=== PATIENT | female | born 1990 | race Caucasian/White ===

== ENCOUNTER 2016-11-10 17:07 | Emergency (ER) | payer OTHER ==
--- NOTE | 2016-11-10 18:49 | ER Document Report ---
HPI - HPI Pain Level: Denies Notes: Patient is a 26-year-old female who presents the ED complaining of having a sensation of chest pressure, intermittent headaches, "weird" tingling sensation in the left arm and left leg 1 week. Patient states that she was evaluated by an urgent care 3 days ago and was given a Z-Wilfredo and Zofran. Her workup at that time included a chest x-ray, blood work, EKG which were all negative. Patient states that her headaches can be in the front and around the sides without any light or noise sensitivity. No history of migraines. Patient states that she does not have any chest pain, trouble breathing, shortness of breath, wheezing, cough. The pressure is felt primarily in the morning and then again it evening when she is lying supine. Patient states that she has been feeling a little anxious lately because of the symptoms and that they are not resolved yet. Patient goes on to say that although she feels overall better since starting the Z-Wilfredo and Zofran, that she feels like her symptoms should be gone by now. She does not take any medications daily. She has no known drug allergies. No significant past medical history. No major life stressors ongoing. Patient does not smoke and she does not do any miscellaneous drug use. Patient denies any significant family history of cardiac, respiratory, endocrine, or other GI medical issues. Patient states that she is still eating and drink without any problems. Her urinary and bowel movements have been normal. Denies any fever, current headache, dizziness, URI, sore throat, dysphagia, dysphasia, abdominal pain, nausea/vomiting, wheeze, diarrhea, dysuria, hematuria, urinary retention, loss control of bowel/bladder, seizures, rash. Patient states that she is sexually active with her . Her LMP was about a week ago. No surgical history. - ROS Notes: REVIEW OF SYSTEMS: CONSTITUTIONAL : Denies fever, chills, or sweats. Denies recent illness. EENT: Denies eye, ear, throat, or mouth pain or symptoms. Denies nasal or sinus congestion or discharge. Denies throat, tongue, or mouth swelling or difficulty swallowing. CARDIOVASCULAR: see hpi RESPIRATORY: Denies cough, cold, or chest congestion. Denies shortness of breath, difficulty breathing, or wheezing. GASTROINTESTINAL: Denies abdominal pain or distention. Denies nausea, vomiting , or diarrhea. Denies blood in vomitus, stools, or per rectum. Denies black, tarry stools. Denies constipation. GENITOURINARY: Denies difficulty urinating, painful urination, burning, frequency, blood in urine, or discharge. FEMALE GENITOURINARY: Denies vaginal bleeding, heavy or abnormal periods, irregular periods. Denies vaginal discharge or odor. MUSCULOSKELETAL: Denies back or neck pain or stiffness. Denies joint pain or swelling. SKIN: Denies rash, lesions or sores. NEUROLOGICAL: Denies confusion or altered mental status. Denies passing out or loss of consciousness. Denies dizziness or lightheadedness. Denies weakness or paralysis or loss of use of either side. Denies problems with gait or speech. Denies seizures. See HPI. PSYCHIATRIC: Denies stress. Denies depression, suicidal ideation, or homicidal ideation. See HPI. ALL OTHER SYSTEMS REVIEWED AND NEGATIVE. Dictation was performed using [employer] voice recognition software REVIEW OF SYSTEMS: - DERM Skin Color: Normal Past Medical History - Social History Smoking Status: Never Smoker Family History: Reviewed & Not Pertinent. denies: None, Arthritis, CAD, COPD, CVA, DM, Hyperlipidemia, Hypertension, Malignancy, Thyroid Disfunction, Other Patient has suicidal ideation: No Patient has homicidal ideation: No Renal/ Medical History: Denies: Hx Peritoneal Dialysis Vertical Provider Document - CONSTITUTIONAL Notes: PHYSICAL EXAMINATION: GENERAL: Well-appearing, well-nourished and in no acute distress. Obese HEAD: Atraumatic, normocephalic. Non-tender. EYES: Pupils equal round and reactive to light, extraocular movements intact, sclera anicteric, conjunctiva are normal. ENT: EAC clear b/l. TM's intact b/l without erythema, fluid, or perforation. Nares patent and without discharge. oropharynx clear without exudates. No tonsilar hypertrophy or erythema. Moist mucous membranes. No sinus tenderness. NECK: Normal range of motion, supple without lymphadenopathy. No rigidity/ meningismus. Spurling negative. Chest: equal rise/fall. Non-tender to palpation. LUNGS: Breath sounds clear to auscultation bilaterally and equal. No wheezes rales or rhonchi. HEART: Regular rate and rhythm without murmurs, rubs, gallops. ABDOMEN: Soft, nontender, nondistended abdomen. No guarding, no rebound. No masses appreciated. Normal bowel sounds present. No CVA tenderness bilaterally. Musculoskeletal: FROM to passive/active. Strength 5+/5. SLR negative b/l. Sumeet neg b/l. Extremities: No cyanosis, clubbing, or edema b/l. Peripheral pulses 2+. Capillary refill less than 3 seconds. NEUROLOGICAL: Cranial nerves grossly intact. Normal speech, normal gait. Normal sensory, motor exams PSYCH: Normal mood, normal affect. SKIN: Warm, Dry, normal turgor, no rashes or lesions noted. - INFECTION CONTROL TRAVEL OUTSIDE OF THE [place] IN LAST 30 DAYS: No - RESPIRATORY O2 Sat by Pulse Oximetry: 99 Course - Re-evaluation Re-evalutation: 11/10/16 19:[address] Mota: Patient is an afebrile, well-hydrated, 26yo female who presents with chest pressure NOS. Vitals are stable. PE unremarkable. PERC score of 0. Low suspicion for any ACS, Pneumothorax, PE, dissection, pericarditis based on work up and presentation. Urine preg negative. CXR negative. EKG negative. No significant PMH/FH (aside from BMI >30) or H&P that would warrant further work up for cardiac etiology at this time. Recommend she continue with the antibiotic and zofran prn for her symptoms. Pt did state she was feeling overall better (symptoms improving) over the last 3 days (since treatment). I would like her to have a f/u with her PCM in 2-3 days for a recheck. ?Anxiety. Return to the ED with any worsening/concerning symptoms as reviewed in discharge. Pt in agreement. - Vital Signs Vital signs: Temp Pulse Resp BP Pulse Ox 99.5 F 92 15 135/82 H 99 11/10/16 17:58 11/10/16 17:58 11/10/16 17:58 11/10/16 17:58 11/10/16 17:58 Discharge - Discharge Clinical Impression: Chest pressure, Anxiety Condition: Stable Disposition: HOME, SELF-CARE Instructions: Headache ([facility]) Additional Instructions: Maintain adequate fluid intake Take meds as directed tylenol/ibuprofen as needed over the counter cold medication as needed for symptoms Humidified air may help for any development of cough F/u: with your PCM in 2-3 days for a recheck and further evaluation Return to the ED with any worsening symptoms and/or development of fever, headache, chest pain, palpitations, syncope, shortness of breath, trouble breathing, abdominal pain, n/v/d, blood in stool/urine, urinary retention, muscle weakness/paralysis, or other worsening symptoms that are concerning to you. Forms: Elevated Blood Pressure
--- NOTE | 2016-11-10 19:16 | RADIOLOGY REPORT (SQ) ---
EXAM DESCRIPTION: CHEST PA/LAT COMPLETED DATE/TIME: 11/10/2016 7:04 pm REASON FOR STUDY: Chest heaviness COMPARISON: None. EXAM PARAMETERS: NUMBER OF VIEWS: two views TECHNIQUE: Digital Frontal and Lateral radiographic views of the chest acquired. RADIATION DOSE: NA LIMITATIONS: none FINDINGS: LUNGS AND PLEURA: No opacities, masses or pneumothorax. No pleural effusion. MEDIASTINUM AND HILAR STRUCTURES: No masses or contour abnormalities. HEART AND VASCULAR STRUCTURES: Heart normal size. No evidence for failure. BONES: No acute findings. HARDWARE: None in the chest. OTHER: No other significant finding. IMPRESSION: NO SIGNIFICANT RADIOGRAPHIC FINDING IN THE CHEST. TECHNICAL DOCUMENTATION: JOB ID: [id number] [employer]- All Rights Reserved
[2016-11-10 20:35] VITALS: BP 121/73
--- NOTE | 2016-11-10 21:31 | EKG REPORT ---
SEVERITY:- NORMAL ECG - SINUS RHYTHM : Confirmed by: Mary Alcala 10-Nov-2016 21:31:23
== END 2016-11-10 20:33 | disposition home or self-care (01) ==
LOC: ER 17:07
DX: R07.89 Other chest pain (principal); R51 Headache; R20.2 Paresthesia of skin
CPT/HCPCS: 71020; 81025; 93005; 93010; 99285

== ENCOUNTER 2019-02-07 16:35 | Outpatient (CLI) | payer OTHER ==
[2019-02-07 17:51] LABS: APPEARANCE,URINE SLIGHTLY-CLOUDY; BILIRUBIN,URINE NEGATIVE (NEGATIVE); COLOR,URINE YELLOW; GLUCOSE, URINE 50 mg/dL (NEGATIVE); KETONES,URINE NEGATIVE (NEGATIVE); LEUKOCYTE ESTERASE,URINE NEGATIVE (NEGATIVE); NITRITE,URINE NEGATIVE (NEGATIVE); PROTEIN,URINE NEGATIVE (NEGATIVE); URINE SPECIFIC GRAVITY 1.018; UROBILINOGEN,URINE NEGATIVE mg/dL (<2.0)
[2019-02-07 18:07] LABS: URINE AMPHETAMINES SCREEN NEGATIVE; URINE BARBITURATES SCREEN NEGATIVE; URINE BENZODIAZEPINES SCREEN NEGATIVE; URINE COCAINE SCREEN NEGATIVE; URINE MARIJUANA (THC) SCREEN NEGATIVE; URINE METHADONE SCREEN NEGATIVE; URINE PHENCYCLIDINE SCREEN NEGATIVE
[2019-02-07 18:16] LABS: UR PRO/CREAT RATIO RESULT 0.1 mg/mg (0.0-0.2); URINE CREATININE 92.7 mg/dL (16-327); URINE PROTEIN 9.6 mg/dL (<12)
[2019-02-07 18:42] LABS: ABSOLUTE BASOPHILS # (AUTO) 0.1 10^3/uL (0.0-0.2); ABSOLUTE EOSINOPHILS # (AUTO) 0.1 10^3/uL (0.0-0.6); ABSOLUTE LYMPHOCYTES (AUTO) 1.4 10^3/uL (0.5-4.7); ABSOLUTE NEUT (AUTO) 8.6 10^3/uL (1.7-8.2); BASOPHILS % (AUTO) 0.7 % (0-2); EOSINOPHILS % (AUTO) 0.6 % (0-6); HEMATOCRIT 34.2 % (36.0-47.0); HEMOGLOBIN 11.1 g/dL (12.0-15.5); LYMPHOCYTES % (AUTO) 12.1 % (13-45); MEAN CORPUSCULAR HEMOGLOBIN 25.7 pg (27.0-33.4); MEAN CORPUSCULAR HGB CONC 32.4 g/dL (32.0-36.0); MEAN CORPUSCULAR VOLUME 79 fl (80-97); MONOCYTES % (AUTO) 9.2 % (3-13); PLATELET COUNT 246 10^3/uL (150-450); RED BLOOD COUNT 4.31 10^6/uL (3.72-5.28); SEGMENTED NEUTROPHILS % (AUTO) 77.4 % (42-78); TOTAL CELLS COUNTED % (AUTO) 100 %; WHITE BLOOD COUNT 11.1 10^3/uL (4.0-10.5)
[2019-02-07 19:04] LABS: ALBUMIN 3.4 g/dL (3.5-5.0); ALKALINE PHOSPHATASE 98 U/L (38-126); ANION GAP 9 (5-19); ASPARTATE AMINO TRANSFERASE 16 U/L (14-36); BILIRUBIN,DIRECT 0.1 mg/dL (0.0-0.4); BILIRUBIN,TOTAL 0.2 mg/dL (0.2-1.3); BLOOD UREA NITROGEN 8 mg/dL (7-20); CALCIUM 9.3 mg/dL (8.4-10.2); CARBON DIOXIDE 21 mmol/L (22-30); CHLORIDE 104 mmol/L (98-107); GLUCOSE 92 mg/dL (75-110); POTASSIUM 4.3 mmol/L (3.6-5.0); TOTAL PROTEIN 6.4 g/dL (6.3-8.2); URIC ACID 3.6 mg/dL (2.5-6.2)
--- NOTE | 2019-02-07 19:09 | Non Stress Test Report ---
Non Stress Test Datetime Report Generated by CPN: 02/07/2019 19:08 DEMOGRAPHIC Test Number: 1 EGA NST: 38.6 INDICATION Indication for Study: Ordered by Provider MONITORING Monitor Explained: Monitor Explained; Test Explained; Patient Verbalized Understanding Time on Monitor: 02/07/2019 18:27 Time off Monitor: 02/07/2019 19:00 NST Duration: 33 NST INTERVENTIONS NST Interventions: PO Hydration; Reposition Patient Physician Notified NST: Dr. Cagle BABY A: [id number] BABY A Movement : Present Contraction Frequency : Irregular FHR Baseline : 135 Accelerations : 15X15 Decelerations : None Variability : Moderate 6-25bpm NST Review: Meets Criteria for Reactive NST NST Review and Verified By : Jose Noel RN NST Results: Reactive NST COMMENTS NST Comments: MD on unit reviewing FHT strip NST REPORT Report Trigger: Send Report
== END 2019-02-07 19:44 | disposition home or self-care (01) ==
LOC: LC 16:35
PROVIDERS: ATTEND Student in an Organized Health Care Education/Training Program
PROC: 4A1HXCZ Monitoring of Products of Conception, Cardiac Rate, External Approach (ICD-10-PCS; principal; 2019-02-07)
DX: Z36.89 Encounter for other specified antenatal screening (principal)
CPT/HCPCS: 36415; 59025; 80053; 80307; 81005; 82570; 83615; 84156; 84550; 85025

== ENCOUNTER 2019-02-08 18:24 | Outpatient (CLI) | payer OTHER ==
[2019-02-08 19:14] LABS: URINE PROTEIN 8.3 mg/dL (<12)
[2019-02-08 19:15] LABS: 24 HOUR URINE PROTEIN RESULT 168 mg/day (42-225)
== END 2019-02-08 19:56 | disposition home or self-care (01) ==
LOC: LC 18:24
PROVIDERS: ATTEND Obstetrics & Gynecology
PROC: 4A1HXCZ Monitoring of Products of Conception, Cardiac Rate, External Approach (ICD-10-PCS; principal; 2019-02-08)
DX: O14.93 Unspecified pre-eclampsia, third trimester (principal); Z3A.39 39 weeks gestation of pregnancy
CPT/HCPCS: 59025; 84156

== ENCOUNTER 2019-02-17 01:33 | Inpatient (IN) | payer OTHER ==
[2019-02-17 02:08] LABS: APPEARANCE,URINE CLOUDY; BILIRUBIN,URINE NEGATIVE (NEGATIVE); COLOR,URINE YELLOW; GLUCOSE, URINE NEGATIVE (NEGATIVE); KETONES,URINE NEGATIVE (NEGATIVE); LEUKOCYTE ESTERASE,URINE NEGATIVE (NEGATIVE); NITRITE,URINE NEGATIVE (NEGATIVE); PROTEIN,URINE 100 mg/dL (NEGATIVE); URINE SPECIFIC GRAVITY 1.026; UROBILINOGEN,URINE NEGATIVE mg/dL (<2.0)
[2019-02-17 02:42] LABS: URINE AMPHETAMINES SCREEN NEGATIVE; URINE BARBITURATES SCREEN NEGATIVE; URINE BENZODIAZEPINES SCREEN NEGATIVE; URINE COCAINE SCREEN NEGATIVE; URINE MARIJUANA (THC) SCREEN NEGATIVE; URINE METHADONE SCREEN NEGATIVE; URINE PHENCYCLIDINE SCREEN NEGATIVE
[2019-02-17 02:56] LABS: ABSOLUTE EOSINOPHILS # (AUTO) 0.1 10^3/uL (0.0-0.6); ABSOLUTE LYMPHOCYTES (AUTO) 1.2 10^3/uL (0.5-4.7); ABSOLUTE NEUT (AUTO) 7.8 10^3/uL (1.7-8.2); BASOPHILS % (AUTO) 0.4 % (0-2); EOSINOPHILS % (AUTO) 0.6 % (0-6); HEMATOCRIT 31.9 % (36.0-47.0); HEMOGLOBIN 10.4 g/dL (12.0-15.5); LYMPHOCYTES % (AUTO) 12.1 % (13-45); MEAN CORPUSCULAR HEMOGLOBIN 25.8 pg (27.0-33.4); MEAN CORPUSCULAR HGB CONC 32.7 g/dL (32.0-36.0); MEAN CORPUSCULAR VOLUME 79 fl (80-97); MONOCYTES % (AUTO) 9.8 % (3-13); PLATELET COUNT 211 10^3/uL (150-450); RED BLOOD COUNT 4.04 10^6/uL (3.72-5.28); RED CELL DISTRIBUTION WIDTH 15.2 % (11.5-14.0); SEGMENTED NEUTROPHILS % (AUTO) 77.1 % (42-78); TOTAL CELLS COUNTED % (AUTO) 100 %; WHITE BLOOD COUNT 10.1 10^3/uL (4.0-10.5)
[2019-02-17] MEDS ORDERED: OXYTOCIN/NORMAL SALINE 20 UNIT/1,000 ML RTUINJ ONE ×2 (03:49→09:19)
--- NOTE | 2019-02-17 03:51 | Admission Physical ---
Datetime Report Generated by CPN: 02/17/2019 03:51 CURRENT ADMISSION Chief Complaint: Suspected Ruptured Membranes Chief Complaint Other: "I think my water broke" Indication for Induction: Not Applicable Admit Impression : Term, Intrauterine Admit Plan: Admit to Unit; Initiate Labor Augmentation Protocol ALLERGIES Medication Allergies: No Medication Allergies: No Known Allergies (02/08/2019) Latex: No Latex Allergies Food Allergies: None Environmental Allergies: None OBSTETRICAL HISTORY EDC: 02/15/2019 00:00 : 1 Para: 0 Gestational Diabetes: Yes Rh Sensitization: No Incompetent Cervix: No JOSEFINA: No Infertility: No ART Treatment: No Uterine Anomaly: No IUGR: No Hx Previous C/S: No Macrosomia: No Hx Loss/Stillborn: No PIH: No Hx : No Placenta Previa/Abruption: No Depression/PP Depression: No PTL/PROM: No Post Hemorrhage: No Current Procedures: Ultrasound; NST Obstetrical History Comments: G1- Current, GDMA1 SEE RECORDS Alcohol: No Marijuana : No Cocaine: No Other Illicit Drugs: No Cigarettes: Never Smoker. [id number] MEDICAL HISTORY Diabetes: Yes Diabetes Type: Gestational Diabetes Blood Transfusion: No Pulmonary Disease (Asthma, TB): No Breast Disease: No Hypertension: Yes Emt Driver Surgery: No Heart Disease: No Hosp/Surgery: No Autoimmune Disorder: No Anesthetic Complications: No Kidney Disease: No Abnormal Pap Smear: No Neuro/Epilepsy: No Psychiatric Disorders: No Other Medical Diseases: No Hepatitis/Liver Disease: No Significant Family History: No Varicosities/Phlebitis: No Trauma/Violence : No Thyroid Dysfunction: No Medical History Comments: [facility] INFECTIOUS HISTORY Gonorrhea: No Genital Herpes: No Chlamydia: No Tuberculosis: No Syphilis: No Hepatitis: No HIV/AIDS Exposure: No Rash or Viral Illness: No HPV: No PHYSICAL EXAM General: Normal HEENT: Normal Neurologic: Normal Thyroid: Normal Heart: Normal Lungs: Normal Breast: Normal Back: Normal Abdomen: Normal Genitourinary Exam: Normal Extremities: Normal DTRs: Normal Pelvic Type: Adequate Vital Signs: Reviewed; Within Normal Limits VAGINAL EXAM Dilatation: 1 Effacement: thick Station: -3 Contraction Comments: rare MEMBRANES Membranes: Ruptured Amniotic Fluid Color: Clear FETUS A EGA: 40.2 Monitoring: External US FHR- Baseline: 130s Variability: Moderate 6-25bpm Accelerations: 15X15 Decelerations: None FHR Category: Category I Admit Comment: G1 presented to L_D c/o that her water may have broken at 0100. ActimProm Positive. She is not maryam and reports good movement. GBS Neg. GDM--diet controlled. PLANS FOR LABOR AND DELIVERY Labor and Delivery: None Pain Management: Natural; Medications; Epidural Feeding Preference: Breast Benefit of Breast Feed Discussed: Yes Circumcision: N/A INFORMED CONSENT Signature: with User ID: [email or web address]
[2019-02-17 06:04] LABS: ALBUMIN 2.9 g/dL (3.5-5.0); ALKALINE PHOSPHATASE 81 U/L (38-126); ANION GAP 9 (5-19); ASPARTATE AMINO TRANSFERASE 15 U/L (14-36); BILIRUBIN,DIRECT 0.1 mg/dL (0.0-0.4); BILIRUBIN,TOTAL 0.1 mg/dL (0.2-1.3); BLOOD UREA NITROGEN 11 mg/dL (7-20); CALCIUM 8.7 mg/dL (8.4-10.2); CARBON DIOXIDE 20 mmol/L (22-30); CHLORIDE 107 mmol/L (98-107); GLUCOSE 106 mg/dL (75-110); POTASSIUM 4.1 mmol/L (3.6-5.0); TOTAL PROTEIN 5.8 g/dL (6.3-8.2); URIC ACID 3.8 mg/dL (2.5-6.2)
[2019-02-17] MEDS ORDERED: OXYTOCIN 10 UNIT/ML VIAL ONE (09:19)
[2019-02-17] MEDS ORDERED: LIDOCAINE 1% INJ-PF (10 MG/ML) 30 ML SDV ONE (09:19)
[2019-02-17] MEDS ORDERED: MISOPROSTOL 0.2 MG TABLET ONE (09:19)
[2019-02-17] MEDS: RINGERS SOLUTION,LACTATED 1,000 ML IV PRN ×3 (09:22→20:32)
[2019-02-17] MEDS ORDERED: PROMETHAZINE HCL INJ 25 MG/1 ML VIAL ONE (14:43)
[2019-02-17] MEDS ORDERED: NALBUPHINE HCL INJ 10 MG/1 ML AMPULE ONE (14:43)
[2019-02-17] MEDS ORDERED: PROMETHAZINE HCL INJ 25 MG/1 ML VIAL IV ONE (14:44)
[2019-02-17] MEDS ORDERED: NALBUPHINE HCL INJ 10 MG/1 ML AMPULE INJ ONE (14:44)
[2019-02-17 18:43] LABS: BASOPHILS % (AUTO) 0.3 % (0-2); EOSINOPHILS % (AUTO) 0.1 % (0-6); HEMATOCRIT 33.9 % (36.0-47.0); HEMOGLOBIN 10.9 g/dL (12.0-15.5); LYMPHOCYTES % (AUTO) 7.1 % (13-45); MEAN CORPUSCULAR HEMOGLOBIN 25.4 pg (27.0-33.4); MEAN CORPUSCULAR VOLUME 79 fl (80-97); MONOCYTES % (AUTO) 6.9 % (3-13); PLATELET COUNT 201 10^3/uL (150-450); RED BLOOD COUNT 4.28 10^6/uL (3.72-5.28); RED CELL DISTRIBUTION WIDTH 15.2 % (11.5-14.0); SEGMENTED NEUTROPHILS % (AUTO) 85.6 % (42-78); TOTAL CELLS COUNTED % (AUTO) 100 %
[2019-02-17] MEDS ORDERED: PHENYLEPHRINE HCL INJ/PF 10 MG/1 ML SDV ONE (18:50)
[2019-02-17] MEDS ORDERED: FENTANYL CITRATE INJ/PF 100 MCG/2 ML AMPUL ONE (18:51)
[2019-02-17] MEDS ORDERED: BUPIVACAINE HCL 0.25 % INJ/PF (2.5 MG/1 ML) 30 ML VIAL ONE ×2 (18:51→22:54)
[2019-02-17] MEDS ORDERED: FENTANYL/BUPIVACAINE/NS/PF 300 MCG/150 ML RTUINJ EPI ONE (18:51)
[2019-02-17] MEDS ORDERED: EPHEDRINE SULFATE INJ 50 MG/1 ML AMPULE ONE (18:51)
[2019-02-18] MEDS ORDERED: CEFAZOLIN INJ 1 GM VIAL ONE (03:57)
[2019-02-18] MEDS ORDERED: CEFAZOLIN 2 GM/D5W RTU 2 GM/50 ML RTUPB IV ONE (04:00)
[2019-02-18] MEDS ORDERED: BENZOCAINE/MENTHOL AEROSOL SPRAY 56 ML TOP PRN (04:30)
[2019-02-18] MEDS ORDERED: DIBUCAINE 1% OINTMENT 56 GM TP PRN (04:30)
[2019-02-18] MEDS ORDERED: ACETAMINOPHEN 650 MG SUPP.RECT PR PRN (04:30)
[2019-02-18] MEDS ORDERED: PROMETHAZINE HCL INJ 25 MG/1 ML VIAL IV PRN (04:30)
[2019-02-18] MEDS ORDERED: MAGNESIUM HYDROXIDE SUSP 30 ML UDCUP PO PRN (04:30)
[2019-02-18] MEDS ORDERED: PROMETHAZINE HCL 25 MG SUPP.RECT PR PRN (04:30)
[2019-02-18] MEDS ORDERED: ACETAMINOPHEN WITH CODEINE #3 TABLET PO PRN (04:30)
[2019-02-18] MEDS ORDERED: DIPH/PERTUSS(ACELL)/TETANUS VAC/PF 0.5 ML SYR (>=10YO) IM PRN (04:30)
[2019-02-18] MEDS ORDERED: OXYTOCIN/NORMAL SALINE 20 UNIT/1,000 ML RTUINJ IV PRN (04:30)
[2019-02-18] MEDS ORDERED: DIPHENHYDRAMINE HCL 25 MG CAPSULE PO PRN (04:30)
[2019-02-18] MEDS ORDERED: ZOLPIDEM TARTRATE 5 MG TABLET PO PRN (04:30)
[2019-02-18] MEDS ORDERED: MEASLES,MUMPS&RUBELLA VACC/PF 0.5 ML VIAL SUBCUT PRN (04:30)
[2019-02-18] MEDS ORDERED: NA PHOS,M-B/NA PHOS,DI-BA (ADULT) 133 ML ENEMA PR PRN (04:30)
[2019-02-18] MEDS ORDERED: PROMETHAZINE HCL 25 MG TABLET PO PRN (04:30)
[2019-02-18] MEDS ORDERED: PSEUDOEPHEDRINE HCL 30 MG TABLET PO PRN (04:30)
[2019-02-18] MEDS ORDERED: GLYCERIN/WITCH HAZEL LEAF 1 EACH MED..WIPE TP PRN (04:30)
--- NOTE | 2019-02-18 06:21 | Warning Signs in Babies ---
VOD Warning Signs Datetime Report Generated by [facility]: 02/18/2019 06:21 VOD#608 -Warning Signs in Babies: Needs to be viewed. (02/07/2019 16:53:Roxane Hernandez RN)
[2019-02-18] MEDS ORDERED: IBUPROFEN 800 MG TABLET ONE (06:38)
[2019-02-18] MEDS: IBUPROFEN 800 MG TABLET PO SCH ×3 (06:41→21:28)
--- NOTE | 2019-02-18 06:44 | Delivery Summary ---
Del Sum A-C Datetime Report Generated by CPN: 02/18/2019 06:44 DELIVERY PERSONNEL DELIVERY PERSONNEL: [id number] Delivery Doctor:: Gabo Seo MD Labor and Delivery Nurse:: Elizabeth Aldana RNhand bindery assembly worker Nurse:: Roxane Henrandez RN Nursery Nurse:: Grazyna Rodgers RN Clinical Scientist/COVER MAKING MACHINE OPERATOR: Deepti Green, ST MATERNAL INFORMATION Delivery Anesthesia: Epidural Medications After Delivery: Pitocin Drip 20 Units/1000ml NSS; Cytotec 1000mcg Per Rectum/Vagina Delivery QBL: 350 Delivery QBL Comment: Total QBL 523 Maternal Complications: Other Complication Details: GDMA1 LABOR SUMMARY EDC: 02/15/2019 00:00 No. Babies in Womb: 1 Attempted: No Labor Anesthesia: Epidural LABOR INFORMATION Reason for Induction: Not Applicable Onset of Labor: 02/17/2019 14:43 Complete Dilatation: 02/17/2019 23:47 Oxytocin: Augmentation Group B Beta Strep: neg Antibiotics # of Doses: 1 Antibiotics Time of Last Dose: 0405 Name of Antibiotic Given: Ancef 2 g Steroids Given: None Reason Steroids Not Administered: Not Applicable MEMBRANES Membranes Rupture Method: Spontaneous Rupture of Membranes: 02/17/2019 00:00 Length of Rupture (hr): 28.23 Amniotic Fluid Color: Light Meconium Amniotic Fluid Amount: Small Amniotic Fluid Odor: Normal STAGES OF LABOR Stage 1 hr: 9 Stage 1 min: 4 Stage 2 hr: 4 Stage 2 min: 27 Stage 3 hr: 0 Stage 3 min: 3 Total Time in Labor hr: 13 Total Time in Labor min: 34 VAGINAL DELIVERY Episiotomy: None Laceration #1: Vaginal Laceration Extension #1: First Degree Laceration Repair: Yes Laceration Repair Note: repaired with 2-0 vicryl left and right vaginal lacerations repaired with 2-0 vicryl Sponge Count Correct: Yes Sharps Count Correct: Yes CSECTION DELIVERY Primary Indication: N/A Secondary Indication: N/A CSection Incidence: N/A Labor: N/A Elective: N/A CSection Incision: N/A BABY A INFORMATION Infant Delivery Date/Time: 02/18/2019 04:14 Method of Delivery: Vaginal Born in Route : No : N/A Forceps: N/A Vacuum Extraction: Successful Shoulder Dystocia : No PRESENTATION/POSITION BABY A Presentation: Cephalic Cephalic Presentation: Vertex Vertex Position: Occipital Posterior Breech Presentation: N/A PLACENTA INFORMATION BABY A Placenta Delivery Time : 02/18/2019 04:17 Placenta Method of Delivery: Spontaneous Placenta Status: Delivered SCORES BABY A Heart Rate 1 min: >100 bpm Resp Effort 1 min: Good Cry Reflex Irritability 1 min: Cough or Sneeze or Pulls Away Muscle Tone 1 min: Active Motion Color 1 min: Blue/Pale Resuscitation Effort 1 min: Tactile Stimulation SCORE 1 MIN: 8 Heart Rate 5 min: >100 bpm Resp Effort 5 min: Good Cry Reflex Irritability 5 min: Cough or Sneeze or Pulls Away Muscle Tone 5 min: Active Motion Color 5 min: Body Vanderbilt, Extremities Blue Resuscitation Effort 5 min: Tactile Stimulation SCORE 5 MIN: 9 INFORMATION BABY A Gestational Age at Delivery: 40.3 Gestational Status: Full Term- 39- 40.6 Weeks Outcome : Liveborn Infant Condition : Stable Sex: Female IDENTIFICATION BABY A Infant Verification Date/Time: 02/18/2019 04:20 ID Band Number: [id number] Mother's Name Verified: Yes Infant RN Verifying Infant: K. Patrice, RN Additional Verifying Personnel: ALuis Felipe Eliaselma, RN WEIGHT/LENGTH BABY A Infant Birthweight (gm): 3140 Weight (lb): 6 Weight (oz): 15 Infant Length (in): 20.50 Length (cm): 52.07 CORD INFORMATION BABY A No. Cord Vessels: 3 Nuchal Cord : Around Neck x2, Tight Cord Blood Taken: Yes-For Storage (Mom's Blood type +) Suction: Mouth ASSESSMENT BABY A Complications: None Physical Findings at Delivery: Caput Succedaneum Infant Respirations: Appears Normal Skin to Skin: Yes Skin to Skin Time (min): 60 Scratch Finisher/ALS Called : No Care By: VIKTORIYA Gabrielman Transferred To: Remains with Mother BABY B INFORMATION : N/A SIGNATURES Signature: with User ID: [email or web address]
[2019-02-18] MEDS: DOCUSATE SODIUM 100 MG CAPSULE PO SCH ×2 (09:46→17:53)
[2019-02-18] MEDS: PRENATAL VITAMIN W DHA CAPSULE PO SCH (09:46)
[2019-02-18] MEDS: FERROUS SULFATE 325 MG TABLET PO SCH ×2 (09:46→17:53)
[2019-02-18] MEDS: SENNOSIDES/DOCUSATE 8.6-50 MG 1 EACH TABLET PO SCH (09:46)
[2019-02-18] MEDS: FAMOTIDINE 20 MG TABLET PO SCH ×2 (09:47→21:28)
--- NOTE | 2019-02-18 09:47 | PDOC PROGRESS REPORT ---
Subjective-OB Progress Note for:: 02/18/19 Subjective: PPD 0, pt , doing well. Denies heavy bleeding, voiding without difficulty. No concerns. Physical Exam (OB) Vital Signs: Temp Pulse Resp BP Pulse Ox 97.6 F 91 14 146/82 H 100 02/18/19 07:17 02/18/19 07:17 02/18/19 07:17 02/18/19 07:17 02/18/19 07:17 Intake & Output 02/17/19 02/18/19 02/19/19 06:59 06:59 06:59 Intake Total 1233 Balance 1233 Weight 116.2 kg - PIH/Pre-Eclampsia Clonus: Negative Headache: Absent Epigastric Pain: No Visual Changes: No - Lochia Lochia Amount: Small 10-25 ml Lochia Color: Rubra/Red - Abdomen Description: Tender, Soft, Round Hernia Present: No Fundal Description: Firm, Midline Fundal Height: u/u - u/2 Objective-Diagnostic Laboratory: 02/17/19 18:20 02/17/19 05:47 02/17/19 18:20 WBC 14.0 H RBC 4.28 Hgb 10.9 L Hct 33.9 L MCV 79 L MCH 25.4 L MCHC 32.0 RDW 15.2 H Plt Count 201 Seg Neutrophils % 85.6 H Assessment and Plan(PN) - Assessment and Plan (1) Vaginal delivery Is this a current diagnosis for this admission?: Yes - Time Spent with Patient Time with patient: Less than 15 minutes Medications reviewed and adjusted accordingly: Yes - Disposition Anticipated Discharge: Home Within: within 24 hours
[2019-02-19] MEDS: IBUPROFEN 800 MG TABLET PO SCH ×3 (05:48→21:33)
[2019-02-19 08:04] LABS: MEAN CORPUSCULAR HEMOGLOBIN 25.4 pg (27.0-33.4); MEAN CORPUSCULAR HGB CONC 32.3 g/dL (32.0-36.0); MEAN CORPUSCULAR VOLUME 79 fl (80-97); PLATELET COUNT 182 10^3/uL (150-450); RED CELL DISTRIBUTION WIDTH 15.4 % (11.5-14.0); WHITE BLOOD COUNT 11.3 10^3/uL (4.0-10.5)
[2019-02-19 08:05] LABS: HEMOGLOBIN 8.4 g/dL (12.0-15.5)
[2019-02-19] MEDS: SENNOSIDES/DOCUSATE 8.6-50 MG 1 EACH TABLET PO SCH (09:26)
[2019-02-19] MEDS: DOCUSATE SODIUM 100 MG CAPSULE PO SCH ×2 (09:26→17:23)
[2019-02-19] MEDS: FERROUS SULFATE 325 MG TABLET PO SCH ×2 (09:26→17:23)
[2019-02-19] MEDS: PRENATAL VITAMIN W DHA CAPSULE PO SCH (09:26)
[2019-02-19] MEDS: FAMOTIDINE 20 MG TABLET PO SCH ×2 (09:26→21:33)
--- NOTE | 2019-02-19 10:27 | PDOC PROGRESS REPORT ---
Subjective-OB Progress Note for:: 02/19/19 Subjective: Doing well, no c/o, , voiding, eating well Physical Exam (OB) Vital Signs: Temp Pulse Resp BP Pulse Ox 97.8 F 87 16 122/78 100 02/19/19 07:27 02/19/19 07:27 02/19/19 07:27 02/19/19 07:27 02/19/19 07:27 Intake & Output 02/18/19 02/19/19 02/20/19 06:59 06:59 06:59 Intake Total 1233 Balance 1233 - PIH/Pre-Eclampsia Clonus: Negative Headache: Absent Epigastric Pain: No Visual Changes: No - Lochia Lochia Amount: Small 10-25 ml Lochia Color: Rubra/Red - Abdomen Description: Soft Hernia Present: No Fundal Description: Firm, Midline Fundal Height: u/u - u/2 Objective-Diagnostic Laboratory: 02/19/19 07:17 02/17/19 05:47 02/19/19 07:17 WBC 11.3 H RBC 3.30 L Hgb 8.4 L D Hct 26.0 L MCV 79 L MCH 25.4 L MCHC 32.3 RDW 15.4 H Plt Count 182 Assessment and Plan(PN) - Assessment and Plan (1) Vaginal delivery Is this a current diagnosis for this admission?: Yes - Time Spent with Patient Time with patient: Less than 15 minutes Medications reviewed and adjusted accordingly: Yes - Disposition Anticipated Discharge: Home Within: within 24 hours
[2019-02-20] MEDS: IBUPROFEN 800 MG TABLET PO SCH ×2 (05:15→13:15)
[2019-02-20 07:36] VITALS: BP 130/69
[2019-02-20] MEDS: DOCUSATE SODIUM 100 MG CAPSULE PO SCH (09:55)
[2019-02-20] MEDS: PRENATAL VITAMIN W DHA CAPSULE PO SCH (09:55)
[2019-02-20] MEDS: FERROUS SULFATE 325 MG TABLET PO SCH (09:55)
[2019-02-20] MEDS: FAMOTIDINE 20 MG TABLET PO SCH (09:55)
[2019-02-20] MEDS: SENNOSIDES/DOCUSATE 8.6-50 MG 1 EACH TABLET PO SCH (09:55)
--- NOTE | 2019-02-20 10:06 | PDOC DISCHARGE SUMMARY ---
Impression - Admit/DC Date/PCP Admission Date/Primary Care Provider: 02/17/19 02:17 RAF COTE MD Discharge Date: 02/20/19 - PP Day #2, doing well, no complaints, - Discharge Diagnosis (1) Anemia affecting Is this a current diagnosis for this admission?: Yes (2) Normal course Is this a current diagnosis for this admission?: Yes (3) Vaginal delivery Is this a current diagnosis for this admission?: Yes - Additional Information Resuscitation Status: Full Code Discharge Diet: As Tolerated, Regular Discharge Activity: Activity As Tolerated, No Lifting Over 10 Pounds, Pelvic Rest Referrals: RAF COTE MD [Primary Care Provider] - Prescriptions: Ferrous Sulfate [Feosol 325 mg Tablet] 325 mg PO DAILY #30 tablet Ibuprofen [Motrin 800 mg Tablet] 800 mg PO Q8 #60 tablet Home Medications: Vit No.130/Iron/Folic [ Tablet] 1 each PO DAILY 02/07/19 Ferrous Sulfate [Feosol 325 mg Tablet] 325 mg PO DAILY #30 tablet 02/20/19 Ibuprofen [Motrin 800 mg Tablet] 800 mg PO Q8 #60 tablet 02/20/19 HPI Reason(s) for Admission: Onset of Labor Procedures: Ultrasound Intrapartum Procedure(s): Spontaneous Vaginal Delivery Complication(s): Laceration-Vaginal Laceration-Degree: 1st Hospital Course Hospital Course: routine Results Laboratory Results: WBC 11.3 10^3/uL (4.0-10.5) H 02/19/19 07:17 RBC 3.30 10^6/uL (3.72-5.28) L 02/19/19 07:17 Hgb 8.4 g/dL (12.0-15.5) L D 02/19/19 07:17 Hct 26.0 % (36.0-47.0) L 02/19/19 07:17 MCV 79 fl (80-97) L 02/19/19 07:17 MCH 25.4 pg (27.0-33.4) L 02/19/19 07:17 MCHC 32.3 g/dL (32.0-36.0) 02/19/19 07:17 RDW 15.4 % (11.5-14.0) H 02/19/19 07:17 Plt Count 182 10^3/uL (150-450) 02/19/19 07:17 Lymph % (Auto) 7.1 % (13-45) L 02/17/19 18:20 [place] % (Auto) 6.9 % (3-13) 02/17/19 18:20 Eos % (Auto) 0.1 % (0-6) 02/17/19 18:20 Baso % (Auto) 0.3 % (0-2) 02/17/19 18:20 Absolute Neuts (auto) 12.0 10^3/uL (1.7-8.2) H 02/17/19 18:20 Absolute Lymphs (auto) 1.0 10^3/uL (0.5-4.7) 02/17/19 18:20 Absolute Monos (auto) 1.0 10^3/uL (0.1-1.4) 02/17/19 18:20 Absolute Eos (auto) 0.0 10^3/uL (0.0-0.6) 02/17/19 18:20 Absolute Basos (auto) 0.0 10^3/uL (0.0-0.2) 02/17/19 18:20 Seg Neutrophils % 85.6 % (42-78) H 02/17/19 18:20 Sodium 135.7 mmol/L (137-145) L 02/17/19 05:47 Potassium 4.1 mmol/L (3.6-5.0) 02/17/19 05:47 Chloride 107 mmol/L (98-107) 02/17/19 05:47 Carbon Dioxide 20 mmol/L (22-30) L 02/17/19 05:47 Anion Gap 9 (5-19) 02/17/19 05:47 BUN 11 mg/dL (7-20) 02/17/19 05:47 Creatinine 0.42 mg/dL (0.52-1.25) L 02/17/19 05:47 Est GFR ( Amer) > 60 (>60) 02/17/19 05:47 Est GFR (Non-Af Amer) Cancelled 02/17/19 02:33 Est GFR (MDRD) Non-Af > 60 (>60) 02/17/19 05:47 Glucose 106 mg/dL (75-110) 02/17/19 05:47 Uric Acid 3.8 mg/dL (2.5-6.2) 02/17/19 05:47 Calcium 8.7 mg/dL (8.4-10.2) 02/17/19 05:47 Total Bilirubin 0.1 mg/dL (0.2-1.3) L 02/17/19 05:47 Direct Bilirubin 0.1 mg/dL (0.0-0.4) 02/17/19 05:47 Neonat Total Bilirubin Not Reportable 02/17/19 05:47 Neonat Direct Bilirubin Not Reportable 02/17/19 05:47 Neonat Indirect Bili Not Reportable 02/17/19 05:47 AST 15 U/L (14-36) 02/17/19 05:47 ALT 12 U/L (<35) 02/17/19 05:47 Alkaline Phosphatase 81 U/L (38-126) 02/17/19 05:47 Total Protein 5.8 g/dL (6.3-8.2) L 02/17/19 05:47 Albumin 2.9 g/dL (3.5-5.0) L 02/17/19 05:47 EGFR Cancelled 02/17/19 02:33 Urine Color YELLOW 02/17/19 01:40 Urine Appearance CLOUDY 02/17/19 01:40 Urine pH 6.0 (5.0-9.0) 02/17/19 01:40 Ur Specific [place] 1.026 02/17/19 01:40 Urine Protein 100 mg/dL (NEGATIVE) H 02/17/19 01:40 Urine Glucose (UA) NEGATIVE mg/dL (NEGATIVE) 02/17/19 01:40 Urine Ketones NEGATIVE mg/dL (NEGATIVE) 02/17/19 01:40 Urine Blood SMALL (NEGATIVE) H 02/17/19 01:40 Urine Nitrite NEGATIVE (NEGATIVE) 02/17/19 01:40 Urine Bilirubin NEGATIVE (NEGATIVE) 02/17/19 01:40 Urine Urobilinogen NEGATIVE mg/dL (<2.0) 02/17/19 01:40 Ur Leukocyte Esterase NEGATIVE (NEGATIVE) 02/17/19 01:40 Urine Ascorbic Acid NEGATIVE (NEGATIVE) 02/17/19 01:40 Membranes Rupture POSITIVE (NEGATIVE) H 02/17/19 01:45 Urine Opiates Screen NEGATIVE 02/17/19 01:40 Urine Methadone Screen NEGATIVE 02/17/19 01:40 Ur Barbiturates Screen NEGATIVE 02/17/19 01:40 Ur Phencyclidine Scrn NEGATIVE 02/17/19 01:40 Ur Amphetamines Screen NEGATIVE 02/17/19 01:40 U Benzodiazepines Scrn NEGATIVE 02/17/19 01:40 Urine Cocaine Screen NEGATIVE 02/17/19 01:40 U Marijuana (THC) Screen NEGATIVE 02/17/19 01:40 RPR NONREACTIVE (NONREACTIVE) 02/17/19 02:41 Blood Type A POSITIVE 02/17/19 02:33 Antibody Screen NEGATIVE 02/17/19 02:33 Plan Health Concerns: iron rich foods due to anemia Plan of Treatment: d/c to home. F/u with [facility] in 4 wks for PP check up
== END 2019-02-20 13:28 | disposition home or self-care (01) | DRG 807 ==
LOC: LC 01:33 → LR 02:17 → UNDODISIN 02-18 00:35 → 2S 02-18 06:55
PROVIDERS: ADMIT Obstetrics & Gynecology; ATTEND Obstetrics & Gynecology Gynecology
PROC: 10D07Z6 Extraction of Products of Conception, Vacuum, Via Natural or Artificial Opening (ICD-10-PCS; principal; 2019-02-18)
PROC: 0HQ9XZZ Repair Perineum Skin, External Approach (ICD-10-PCS; 2019-02-18)
DX: O69.1XX0 Labor and delivery complicated by cord around neck, with compression, not applicable or unspecified (principal); Z37.0 Single live birth; O24.420 Gestational diabetes mellitus in childbirth, diet controlled; O70.0 First degree perineal laceration during delivery; Z3A.40 40 weeks gestation of pregnancy; O77.0 Labor and delivery complicated by meconium in amniotic fluid; O99.02 Anemia complicating childbirth; D64.9 Anemia, unspecified
CPT/HCPCS: 36415; 80053; 80307; 81005; 84112; 84550; 85025; 85027; 86592; 86850; 86900; 86901; J0690; J2300; J2370; J2550; J2590; J3010; J3490